=== PATIENT | female | born 1945 | race Caucasian/White ===

== ENCOUNTER 2020-01-11 14:32 | Emergency (ER) | payer SELFPAY ==
[~2020-01-11] VITALS: Ht 162.5 cm; Wt 80.0 kg
[2020-01-11] MEDS ORDERED: NS IV 1000 ML 1,000 ML IV STA ×2 (14:40→16:32)
[2020-01-11] MEDS ORDERED: DICYCLOMINE 10 MG/ML (BENTYL) 2 ML AMP IM STA (14:40)
[2020-01-11] MEDS ORDERED: ONDANSETRON 4 MG/2 ML (SDV) Z0FRAN IVP STA (14:40)
--- OUTSIDE RECORDS SUMMARY | 2020-01-11 14:43 | XMS REPORT | Continuity of Care Document ---
Author Organization Unknown Address Unknown Phone Unavailable Allergies There is no data. Medications There is no data. Problems There is no data. Procedures There is no data. Results There is no data. Encounters ACCT No. Visit Date/Time Discharge Status Pt. Type Provider Facility Loc./Unit Complaint [id number] 10/22/2018 17:00:00 10/22/2018 23:59: 59 CLS Outpatient NOEMI ROBB [facility]
--- OUTSIDE RECORDS SUMMARY | 2020-01-11 14:43 | XMS REPORT ---
Author Author Davin HENDERSON Organization [facility] [place] RE Address [address] [place] [address] Care Team Providers Care American Indian Policy Specialist Name Role Phone SLOAN HENDERSON Unavailable PROBLEMS Unknown Problems ALLERGIES No Known Allergies ENCOUNTERS Encounter Location Date Diagnosis [address] [place] [address] Mar, Concussion with loss of cons ciousness of 30 minutes or less, initial encounter S06.0X1A [facility] [address] [place] [address] Sep, Right medial knee pain M25.5 61 IMMUNIZATIONS No Known Immunizations SOCIAL HISTORY Never Assessed REASON FOR VISIT right leg gave out and twisted knee ... today [facility] PLAN OF CARE Activity Details Follow Up prn Reason: VITAL SIGNS Height 65 in 2018-10-22 Weight 190 lbs 2018-10-22 Temperature 97.8 degrees Fahrenheit 2018-10-22 Heart Rate 78 bpm 2018-10-22 Respiratory Rate 20 2018-10-22 Oximetry 99 % 2018-10-22 BMI 31.61 kg/m2 2018-10-22 Blood pressure systolic 128 mmHg 2018-10-22 Blood pressure diastolic 70 mmHg 2018-10-22 MEDICATIONS Medication Instructions Dosage Frequency Start Date End Date Duration S tatus Cyclobenzaprine HCl 10 MG 10 Active Fluticasone Propionate 50 MCG/ACT 90 Active Duloxetine HCl 60 MG 90 Act baljit Verapamil HCl ER 240 MG 90 Active Zolpidem Tartrate 10 MG (Schedule IV Drug) 30 Active BusPIRone HCl 15 MG 90 Acti ve Tramadol HCl 50 MG (Schedule IV Drug) 15 Active RESULTS No Results PROCEDURES Procedure Date Ordered Result Body Site [facility] VISIT NEW PATIENT October 22, 2018 INSTRUCTIONS MEDICATIONS ADMINISTERED No Known Medications MEDICAL (GENERAL) HISTORY Type Description Date Medical History anxiety Medical History depression Surgical History inguinal hernia repair-right Surgical History rotator cuff tear repair left Surgical History breast biopsy/ Left cyst removed Surgical History bowel resection Surgical History hernia repair hialal 2018 Surgical History appendectomy Hospitalization History see surgeries
--- NOTE | 2020-01-11 14:48 | ED GI ---
General Stated Complaint: ABD PAIN Source of Information: Patient, EMS History of Present Illness Date Seen by Provider: Jan 11, 2020 Time Seen by Provider: 14:32 Initial Comments 74-year-old female presenting with complaints of multiple episodes of diarrhea and dry heaves since 1 AM. She denies any or drink anything out of the norm for her. She has had no fever or chills. She denies any pain with urination. She has dizziness and feels lightheaded when she tries to change positions. She has been generalized uncomfortable feeling in her abdomen and pelvis but denies any significant pain in her belly. She denies any hematemesis or hematochezia or melena. Allergies and Home Medications Allergies Coded Allergies: oxycodone (Verified Adverse Reaction, Unknown, 01/11/20) Heart racing Patient Home Medication List Home Medication List Reviewed: Yes Review of Systems Review of Systems Constitutional: No chills; dizziness (with standing and changing positions); No fever EENTM: See HPI, Throat Pain (from dry heaves overnight) Respiratory: No Symptoms Reported Cardiovascular: No Symptoms Reported Gastrointestinal: See HPI, Abdominal Pain (general discomfort but denies actual pain), Diarrhea, Nausea; Denies Vomiting (dry heaves) Genitourinary: Denies Burning, Denies Frequency Musculoskeletal: no symptoms reported Skin: no symptoms reported Psychiatric/Neurological: No Symptoms Reported Past Xkbaiti-Xnxilk-Xutdqu Hx Past Med/Social Hx: Reviewed Nursing Past Med/Soc Hx Past Medical History Gastrointestinal: Yes Diverticulosis Physical Exam Vital Signs Vital Signs - First Documented 01/11/20 14:35 Temp 37.8 Pulse 91 Resp 16 B/P (MAP) 102/58 (73) Pulse Ox 93 O2 Delivery Room Air Capillary Refill : Height/Weight/BMI Height: '" Weight: lbs. oz. kg; BMI Method: General Appearance: WD/WN, no apparent distress HEENT: normal ENT inspection, pharynx normal Neck: non-tender, full range of motion, supple, normal inspection Respiratory: chest non-tender, lungs clear, normal breath sounds Cardiovascular: normal peripheral pulses, regular rate, rhythm Gastrointestinal: soft, no pulsatile mass, abnormal bowel sounds (hyperactive); No guarding, No rebound; tenderness (diffuse discomfort with palpation) Extremities: normal range of motion, non-tender, no pedal edema, normal capillary refill Neurologic/Psychiatric: alert, normal mood/affect, oriented x 3 Skin: normal color, warm/dry Progress/Results/Core Measures Results/Orders Lab Results Laboratory Tests Test 01/11/20 14:43 01/11/20 14:52 Range/Units White Blood Count 9.9 4.3-11.0 10^3/uL Red Blood Count 4.46 4.35-5.85 10^6/uL Hemoglobin 13.7 11.5-16.0 G/DL Hematocrit 42 35-52 % Mean Corpuscular Volume 94 80-99 FL Mean Corpuscular Hemoglobin 31 25-34 PG Mean Corpuscular Hemoglobin Concent 33 32-36 G/DL Red Cell Distribution Width 13.4 10.0-14.5 % Platelet Count 165 130-400 10^3/uL Mean Platelet Volume 12.3 H 7.4-10.4 FL Neutrophils (%) (Auto) 88 H 42-75 % Lymphocytes (%) (Auto) 6 L 12-44 % Monocytes (%) (Auto) 6 0-12 % Eosinophils (%) (Auto) 0 0-10 % Basophils (%) (Auto) 0 0-10 % Neutrophils # (Auto) 8.7 H 1.8-7.8 X 10^3 Lymphocytes # (Auto) 0.6 L 1.0-4.0 X 10^3 Monocytes # (Auto) 0.6 0.0-1.0 X 10^3 Eosinophils # (Auto) 0.0 0.0-0.3 10^3/uL Basophils # (Auto) 0.0 0.0-0.1 10^3/uL Neutrophils % (Manual) 40 % Lymphocytes % (Manual) 8 % Monocytes % (Manual) 8 % Eosinophils % (Manual) 0 % Basophils % (Manual) 0 % Metamyelocytes % 4 % Band Neutrophils 36 % Atypical Lymphocytes 4 % Blood Morphology Comment NORMAL Sodium Level 135 135-145 MMOL/L Potassium Level 4.0 3.6-5.0 MMOL/L Chloride Level 100 98-107 MMOL/L Carbon Dioxide Level 20 L 21-32 MMOL/L Anion Gap 15 H 5-14 MMOL/L Blood Urea Nitrogen 20 H 7-18 MG/DL Creatinine 0.69 0.60-1.30 MG/DL Estimat Glomerular Filtration Rate > 60 BUN/Creatinine Ratio 29 Glucose Level 118 H 70-105 MG/DL Calcium Level 8.6 8.5-10.1 MG/DL Corrected Calcium 8.6 8.5-10.1 MG/DL Total Bilirubin 0.6 0.1-1.0 MG/DL Aspartate Amino Transf (AST/SGOT) 19 5-34 U/L Alanine Aminotransferase (ALT/SGPT) 13 0-55 U/L Alkaline Phosphatase 54 40-136 U/L Total Protein 6.7 6.4-8.2 GM/DL Albumin 4.0 3.2-4.5 GM/DL Lipase 30 8-78 U/L Urine Color DARK YELLOW Urine Clarity CLEAR Urine pH 6.0 5-9 Urine Specific Arthur >=1.030 1.016-1.022 Urine Protein NEGATIVE NEGATIVE Urine Glucose (UA) NEGATIVE NEGATIVE Urine Ketones TRACE H NEGATIVE Urine Nitrite NEGATIVE NEGATIVE Urine Bilirubin NEGATIVE NEGATIVE Urine Urobilinogen 0.2 < = 1.0 MG/DL Urine Leukocyte Esterase TRACE H NEGATIVE Urine RBC (Auto) NEGATIVE NEGATIVE Urine RBC NONE /HPF Urine WBC 5-10 H /HPF Urine Squamous Epithelial Cells 2-5 /HPF Urine Crystals NONE /LPF Urine Bacteria TRACE /HPF Urine Casts NONE /LPF Urine Mucus LARGE H /LPF Urine Culture Indicated YES My Orders Orders - JOHN AREVALO MD Comprehensive Metabolic Panel (01/11/20 14:39) Lipase (01/11/20 14:39) Ua Culture If Indicated (01/11/20 14:39) Ed Iv/Invasive Line Start (01/11/20 14:39) Cbc With Automated Diff (01/11/20 14:39) Ct Abdomen/Pelvis W (01/11/20 14:39) Ns Iv 1000 Ml (Sodium Chloride 0.9%) (01/11/20 14:40) Ondansetron Injection (Zofran Injectio (01/11/20 14:40) Dicyclomine Injection (Bentyl Injection) (01/11/20 14:40) Iohexol Injection (Omnipaque 350 Mg/Ml 1 (01/11/20 15:00) Received Contrast (Hold Metformin- Contr (01/11/20 15:00) Sodium Chloride Flush (Catheter Flush Sy (01/11/20 15:00) Ns (Ivpb) (Sodium Chloride 0.9% Ivpb Bag (01/11/20 15:00) Manual Differential (01/11/20 14:43) Urine Culture (01/11/20 14:52) Ns Iv 1000 Ml (Sodium Chloride 0.9%) (01/11/20 16:32) Medications Given in ED Current Medications Medications Dose Ordered Sig/Brook Route Start Time Stop Time Status Last Admin Dose Admin Iohexol 100 ml ONCE ONCE IV 01/11/20 15:00 01/11/20 15:01 DC 01/11/20 15:49 100 ML Sodium Chloride 10 ml NEEDED PRN IV 01/11/20 15:00 01/11/20 15:50 10 ML Sodium Chloride 100 ml ONCE ONCE IV 01/11/20 15:00 01/11/20 15:01 DC 01/11/20 15:49 100 ML Vital Signs/I&O 01/11/20 14:35 Temp 37.8 Pulse 91 Resp 16 B/P (MAP) 102/58 (73) Pulse Ox 93 O2 Delivery Room Air Progress Progress Note #1: Progress Note check basic labs and urine. CT scan of abdomen/pelvis to evaluate from a diverticulosis/diverticulitis standpoint. Try IVF for hydration, Zofran for nausea, Dicyclomine for abdominal "discomfort" Progress Note #2: Time: 16:09 Progress Note labs show normal WBC count of 9.9 with bandemia. Chemistry without acute significant abnormality. Normal lipase. UA is concentrated without LE or Nitrites. CT scan shows diffuse dilated loops of small bowel consistent with ileus vs possible early small bowel obstruction. No definite transition point and no free air or perforation. Patient reports that she feels a little bit better. She's passed no diarrhea or vomiting here in the ED. She thinks that she was like to go to [place] where Dr. Bowen as because she does not like [facility] in [place]. She wants to try and check with her family and with her insurance company to make sure that [facility] would be covered by her insurance. I advised her to let me know as soon as she made a decision or found out something more so I could make calls to get her transferred Progress Note #3: Time: 17:08 Progress Note Patient decided [facility] would be her preferred hospital with Dr. Bowen. I called the hospital at 1700 and gave them general information and Dr. Bowen called back at [address]08. Dr. Bowen accepted patient for transfer. Patient was asking to go to [place] instead of [facility]. That way she would be in hospital where her pcp practices from and could care for her. Diagnostic Imaging Diagonstic Imaging: CT Plain Films/CT/US/NM/MRI: abdomen, pelvis Comments NAME: CARLO GUY [facility] REC#: [id number] PT STATUS: REG ER : 1945 PHYSICIAN: JOHN AREVALO MD ADMIT DATE: 01/11/20/ER FS Signed Date of Exam:01/11/20 CT ABDOMEN/PELVIS W EXAMINATION: CT abdomen and pelvis with intravenous contrast. TECHNIQUE: Multiple contiguous axial images were obtained through the abdomen and pelvis after the uneventful administration of intravenous contrast. All CT scans use one or more of the following dose optimizing techniques: automated exposure control, MA and/or KvP adjustment based on patient size and exam type or iterative reconstruction. HISTORY: Nausea and diarrhea. COMPARISON: None available. FINDINGS: The heart is unremarkable. The included lung bases are clear. Fluid-filled dilated loops of small bowel are seen throughout the abdomen. No definite transition point is identified. Liquid stool is seen in the colon. Postsurgical changes are noted in the sigmoid colon. No free fluid or free air is present. The liver, spleen, pancreas, adrenal glands and kidneys have a normal appearance. There is no pathologically enlarged mesenteric or retroperitoneal adenopathy. No acute osseous abnormality. There is calcified aortic and iliac atherosclerotic plaque without aneurysm. The urinary bladder is nondistended. There is no free air, loculated collection or adenopathy in the pelvis. IMPRESSION: Fluid-filled distended loops of small bowel throughout the abdomen, concerning for early small bowel obstruction. Ileus may also have this appearance. No definite transition point is seen. Liquid stool is seen in the colon, consistent with a history of diarrhea. No free fluid or free air. Dictated by: Dictated on workstation # [id number] Dict: 01/11/20 1558 Trans: 01/11/20 1607 [facility] [id number] Interpreted by: SEAN DU DO Electronically signed by: SEAN DU DO 01/11/20 1607 Departure Impression Primary Impression: Small bowel obstruction Additional Impressions: Diarrhea Qualified Codes: R19.7 - Diarrhea, unspecified Dehydration Disposition: 02 XFER SHT-TRM HOSP Condition: Stable Transfer Transfer Reason: Patient preference Time Spoke to Accepting Phy: 17:08 Transfer Progress Notes d/w Dr. Bowen and he accepted her in transfer to go to [facility]. Will continue IVF and bowel rest. Since she is not vomiting now will defer NG tube but did discuss possibility with patient. Transfer Facility: [facility] Method of Transfer: EMS Departure-Patient Inst. Referrals: AUNG BOWEN MD (PCP/Family) Primary Care Physician JOHN AREVALO MD Jan 11, 2020 14:48
[2020-01-11 15:00] LABS: BASOPHILS % (AUTO) 0 % (0-10); EOSINOPHILS % (AUTO) 0 % (0-10); HEMATOCRIT 42 % (35-52); HEMOGLOBIN 13.7 G/DL (11.5-16.0); LYMPHOCYTES % (AUTO) 6 % (12-44); MEAN CORPUSCULAR HEMOGLOBIN 31 PG (25-34); MEAN CORPUSCULAR HGB CONC 33 G/DL (32-36); MEAN CORPUSCULAR VOLUME 94 FL (80-99); MEAN PLATELET VOLUME 12.3 FL (7.4-10.4); MONOCYTES % (AUTO) 6 % (0-12); NEUTROPHILS % (AUTO) 88 % (42-75); PLATELET COUNT 165 10^3/uL (130-400); RED CELL DISTRIBUTION WIDTH 13.4 % (10.0-14.5); WHITE BLOOD COUNT 9.9 10^3/uL (4.3-11.0)
[2020-01-11] MEDS ORDERED: HOLD METFORMIN - RECEIVED CONTRAST 20 ML VIAL IV SCH (15:00)
[2020-01-11] MEDS ORDERED: IOHEXOL 350 MG/ML 100 ML (OMNIPAQUE 350) VIAL IV ONE (15:00)
[2020-01-11] MEDS ORDERED: NS 100 ML (IVPB) BAG IV ONE (15:00)
[2020-01-11] MEDS ORDERED: CATHETER FLUSH 10 ML SYR IV PRN (15:00)
[2020-01-11 15:01] LABS: LYMPHOCYTES # (AUTO) 0.6 X 10^3 (1.0-4.0); MONOCYTES # (AUTO) 0.6 X 10^3 (0.0-1.0); NEUTROPHILS # (AUTO) 8.7 X 10^3 (1.8-7.8)
[2020-01-11 15:12] LABS: BACTERIA,URINE TRACE /HPF; BILIRUBIN,URINE NEGATIVE (NEGATIVE); CLARITY,URINE CLEAR; COLOR,URINE DARK YELLOW; GLUCOSE, URINE (UA) NEGATIVE (NEGATIVE); KETONES,URINE TRACE (NEGATIVE); LEUKOCYTE ESTERASE ,URINE TRACE (NEGATIVE); NITRITE,URINE NEGATIVE (NEGATIVE); PROTEIN,URINE NEGATIVE (NEGATIVE)
[2020-01-11 15:20] LABS: ATYPICAL LYMPHOCYTES 4 %; BAND NEUTROPHILS 36 %; BASOPHILS % (MANUAL) 0 %; EOSINOPHILS % (MANUAL) 0 %; LYMPHOCYTES % (MANUAL) 8 %; METAMYELOCYTES % 4 %; MONOCYTES % (MANUAL) 8 %; NEUTROPHILS % (MANUAL) 40 %; RBC MORPH NORMAL
[2020-01-11 15:22] LABS: BUN/CREATININE RATIO 29; CALCIUM 8.6 MG/DL (8.5-10.1); CARBON DIOXIDE 20 MMOL/L (21-32); CHLORIDE 100 MMOL/L (98-107); CREATININE SERUM 0.69 MG/DL (0.60-1.30); GFR ESTIMATED > 60; GLUCOSE 118 MG/DL (70-105); SODIUM 135 MMOL/L (135-145)
[2020-01-11 15:23] LABS: ALANINE AMINOTRANSFERASE 13 U/L (0-55); ALKALINE PHOSPHATASE 54 U/L (40-136); BILIRUBIN,TOTAL 0.6 MG/DL (0.1-1.0); TOTAL PROTEIN 6.7 GM/DL (6.4-8.2)
[2020-01-11 15:42] LABS: LIPASE 30 U/L (8-78)
--- NOTE | 2020-01-11 16:03 | Diagnostic Imaging Report ---
EXAMINATION: CT abdomen and pelvis with intravenous contrast. TECHNIQUE: Multiple contiguous axial images were obtained through the abdomen and pelvis after the uneventful administration of intravenous contrast. All CT scans use one or more of the following dose optimizing techniques: automated exposure control, MA and/or KvP adjustment based on patient size and exam type or iterative reconstruction. HISTORY: Nausea and diarrhea. COMPARISON: None available. FINDINGS: The heart is unremarkable. The included lung bases are clear. Fluid-filled dilated loops of small bowel are seen throughout the abdomen. No definite transition point is identified. Liquid stool is seen in the colon. Postsurgical changes are noted in the sigmoid colon. No free fluid or free air is present. The liver, spleen, pancreas, adrenal glands and kidneys have a normal appearance. There is no pathologically enlarged mesenteric or retroperitoneal adenopathy. No acute osseous abnormality. There is calcified aortic and iliac atherosclerotic plaque without aneurysm. The urinary bladder is nondistended. There is no free air, loculated collection or adenopathy in the pelvis. IMPRESSION: Fluid-filled distended loops of small bowel throughout the abdomen, concerning for early small bowel obstruction. Ileus may also have this appearance. No definite transition point is seen. Liquid stool is seen in the colon, consistent with a history of diarrhea. No free fluid or free air. Dictated by: Dictated on workstation # [id number]
[2020-01-11 17:55] VITALS: BP 105/40
== END 2020-01-11 17:55 | disposition short-term general hospital (02) ==
LOC: EDUNIT# 14:32 → ER FS 14:34
DX: K56.609 Unspecified intestinal obstruction, unspecified as to partial versus complete obstruction (principal); R19.7 Diarrhea, unspecified; Z88.5 Allergy status to narcotic agent; Z87.19 Personal history of other diseases of the digestive system
CPT/HCPCS: 36415; 74177; 80053; 81000; 83690; 85007; 85027; 87088